=== PATIENT | male | born 1945 | race Caucasian/White ===

== ENCOUNTER → 2016-11-15 | Outpatient (CLI) | payer BC, OTHER ==
--- NOTE | 2016-11-15 10:16 | US ---
Bilateral Duplex/Doppler Carotid Sonography Clinical Indications: Hypertension, hyperlipidemia, coronary artery bypass. Technique: The cervical portions of the carotid and vertebral arteries were imaged and interrogated by color and pulsed Duplex/Doppler. Spectral analysis was performed. Findings: Right Carotid: Right CCA peak systolic velocity = 62 cm/sec Right ICA peak systolic velocity = 84 cm/sec Right ECA peak systolic velocity = 191 cm/sec Right ICA/CCA systolic velocity ratio = 1.4 Velocities correlate to less than 30% diameter stenosis of the origin of the right internal carotid a rtery with respect to the normal distal internal carotid artery. Mild calcified plaque involving the right carotid bulb and proximal right internal carotid artery. Left Carotid: Left CCA peak systolic velocity = 60 cm/sec Left ICA peak systolic velocity = 104 cm/sec Left ECA peak systolic velocity = 191 cm/sec Left ICA/CCA systolic velocity ratio = 1.7 Velocities correlate to less than 30% diameter stenosis of the origin of the left internal carotid ar debra with respect to the normal distal internal carotid artery. Mild calcified plaque involving the l eft carotid bulb and proximal left internal carotid artery. Vertebral Arteries: Antegrade flow is shown by pulsed Doppler of each vertebral artery. Impression: 1. Mild atherosclerotic disease bilateral carotid bulbs. 2. Velocities correlate to less than 30% diameter stenosis of the origin of the right internal caroti d artery. 3. Velocities correlate to less than 30% diameter stenosis of the origin of the left internal carotid artery. 4. Bilateral vertebral arteries are patent with antegrade flow. Measurement of carotid stenosis is based on velocity parameters that correlate the residual internal carotid diameter with [place] Symptomatic Carotid Endarterectomy Trial (NASCET) based stenosis levels.
== END ==
LOC: CIMAGING 09:05
PROVIDERS: ATTEND Internal Medicine Interventional Cardiology
DX: I77.1 Stricture of artery (principal); I10 Essential (primary) hypertension; E78.5 Hyperlipidemia, unspecified; Z95.1 Presence of aortocoronary bypass graft
CPT/HCPCS: 93880-PO